=== PATIENT | male | born 1955 | race Caucasian/White ===

== ENCOUNTER 2020-06-12 19:48 | Inpatient (IN) | payer MEDICARE ==
[~2020-06-12] VITALS: Ht 170.2 cm; Wt 81.0 kg
[2020-06-13] MEDS ORDERED: DEXTROSE (50%) 50ML SYRG IV PRN (00:15)
[2020-06-13] MEDS ORDERED: LABETALOL HCL 5 MG/ML 4ML SYRINGE IV PRN (00:15)
[2020-06-13 00:30] VITALS: BP 135/70
[2020-06-13] MEDS ORDERED: EMPA1TAB3 PO (00:46)
[2020-06-13] MEDS ORDERED: ATOR40TA52 PO (00:46)
[2020-06-13] MEDS ORDERED: CIPR500T4 PO (00:46)
[2020-06-13] MEDS ORDERED: INSUINJ37 SC (00:46)
[2020-06-13] MEDS: DOXYCYCLINE 100MG/250ML 250 ML IV SCH ×2 (01:00→16:09)
[2020-06-13] MEDS: SODIUM CHLORIDE 0.9% 1,000 ML IV SCH ×2 (01:00→17:10)
[2020-06-13] MEDS: HYDROcodone-ACET 5/325MG TAB PO PRN ×5 (01:01→21:26)
[2020-06-13] MEDS ORDERED: NITROGLYCERIN 0.4 MG SL TAB SL PRN ×2 (01:15)
[2020-06-13] MEDS ORDERED: MORPHINE SULF INJ 2 MG/ML SYRINGE 1ML IV PRN ×2 (01:15)
--- NOTE | 2020-06-13 01:21 | NUR ---
transfer from [facility] dr gramajo accepting physician, pt arrived awake and alert on room air. pt oriented to this nurse, room restroom, bed control. pt left foot is 3+ pitting edema, skin is tight and warm to touch, blood appears to be coming from between great and second toe. pt reports he is ambulatory normally and this foot began to be an issue 3 days ago and is not aware of any incident in particular that couldve caused issue. pt is alert and oriented x4. pt came with 18g to rfa and single lumen right upper arm picc. this nurse spoke with dr gramajo and received orders. this nurse to carry out orders. pt using urinal. pt bed locked, low and 2x rails up. call light in reach, this nurse to round q1hr and prn. pt encouraged to call as needed.
--- NOTE | 2020-06-13 01:31 | NUR ---
wound photo of left foot taken. wound cleanser used, non adhering gauze applied between great and second toe, then wrapped with gauze roll.
[2020-06-13] MEDS: CIPROFLOXACIN 400MG/200ML 200 ML IV SCH ×2 (03:27→14:37)
[2020-06-13 05:00] VITALS: BP 113/59
[2020-06-13] MEDS: InsuLIN REG 1unit/0.01ml Soln (100units/ml) SC SCH ×4 (06:27→21:23)
[2020-06-13] MEDS: SODIUM CHLOR 0.9% PF (SALINE LOCK) 10ML VIAL/SYR IV SCH ×3 (06:30→21:19)
[2020-06-13] MEDS: ACCU-CHEK COMFORT CURVE STRIP VI SCH ×4 (06:30→21:20)
[2020-06-13 09:00] VITALS: BP 111/55
[2020-06-13] MEDS ORDERED: ASPirin 325 MG TAB PO ONE (09:45)
[2020-06-13] MEDS ORDERED: ENOXAPARIN SOD 40 MG/0.4 ML SYRINGE SC SCH (10:00)
[2020-06-13] MEDS: ENOXAPARIN SOD 80 MG/0.8ML SYRINGE SC SCH ×2 (10:07→21:20)
[2020-06-13 10:15] LABS: Basophils # (auto) 0 10 ^3/uL (0-0.2); Eosinophils # (auto) 0.2 10 ^3/uL (0-0.8); Hemoglobin 10.1 g/dL (13.5-17.5); Lymphocytes # (auto) 1.9 10 ^3/uL (0.4-5.4); Monocytes # (auto) 1.3 10 ^3/uL (0-1.3); Neutrophils # (auto) 14.2 10 ^3/uL (1.6-8.6)
[2020-06-13 10:17] LABS: Basophils % (auto) 0.2 % (0.0-2.0); Hematocrit 29.7 % (41.0-53.0); Lymphocytes % (auto) 10.6 % (10.0-50.0); Mean Corpuscular Hemoglobin 31.2 pg (28.0-32.0); Mean Corpuscular Volume 91.6 fL (80.0-100.0); Monocytes % (auto) 7.6 % (0.0-12.0); Neutrophils % (auto) 80.6 % (37.0-80.0); Platelet Count (auto) 486 10^3/uL (140-450); Red Blood Cells 3.25 10^6/uL (4.5-5.90); Red Cell Distribution Width 13.1 % (11.8-14.3); White Blood Cell 17.7 10^3/uL (4.4-10.8)
[2020-06-13 10:22] LABS: Albumin 1.9 g/dL (3.4-5.0); Calcium 8.3 mg/dL (8.5-10.1); Potassium 4.1 mmol/L (3.5-5.1)
[2020-06-13 10:29] LABS: BUN/Creatinine Ratio 22.8; Bilirubin, Total 0.3 mg/dL (0.2-1.0); Total Protein 6.3 g/dL (6.4-8.2)
[2020-06-13 13:00] VITALS: BP 123/68
--- NOTE | 2020-06-13 13:20 | NUR ---
WOUND CARE NOTE: Wound care in to see patient per wound care request regarding Left Foot wound that are noted on admission. Bedside nurse took photograph of patient's wound upon admission for reference. Patient is 65 years old male with admitting diagnosis of Non-healing Ulcer, ACS. Patient is resting in bed in Rm. 214A. Patient is awake, alert and oriented. He's self turning and repositioning. His Rasheed score is 18. Patient is in no stated pain at this time however, reports that his L foot is painful upon movement. Noted patient's LLE is erythremic and edematous. He has 3x3cm blistered ulcer to at base of L great toe between L1st and L 2nd digit. Wound is yellow blistered with dark red, minimal serosanguineous drainage, no odor noted. His L toe nails noted thick and yellow. Patient reported he has had the L foot wound for a week and he has not seen a [facility] doctor. Cleansed patient's Lt foot wound with Betadine, applied Betadine moist gauze on wound and L1st and L 2nd interdigit, padded with dry gauze, wrapped with Kerlix and secured with tape. Patient tolerated well. RECOMMENDATION: Nursing to continue with Daily/PRN dressing change to Lt foot wound per MD order, Podiatry consult, Dietary consult, elevate affected extremity on pillows, continue monitoring by wound care while patient is hospitalized. Addendum: 06/13/20 at 1554 by Marlena Lin RN Amended: Links added.
[2020-06-13] MEDS ORDERED: PANTOPRAZOLE 40 MG/10 ML VIAL INJ IV ONE (15:15)
[2020-06-13 16:50] VITALS: BP 125/72
[2020-06-13 19:23] LABS: Urine Bacteria NONE SEEN /hpf (None Seen); Urine Blood Negative /uL (Negative); Urine Specific Gravity 1.015 (1.001-1.035); Urine WBC <1 /hpf (0 - 3)
--- NOTE | 2020-06-13 20:30 | NUR ---
OPEN NOTE assumed care of pt, upon entering room pt awake and alert on room air with no s/s distress noted or expressed. pt denies any pain at this time. pt updated on plan of care. pt rapid tracie test performed and swab walked to lab. pt bed locked, low and 2x rails up. call light in reach, this nurse to round q1hr and prn. pt encouraged to call as needed.
[2020-06-13] MEDS: ATORVASTATIN 20 MG TAB PO SCH (21:20)
[2020-06-13 22:00] VITALS: BP 118/65
[2020-06-13] MEDS ORDERED: ATORVASTATIN 20 MG TAB PO SCH (22:00)
[2020-06-14] MEDS: DOXYCYCLINE 100MG/250ML 250 ML IV SCH ×2 (00:59→14:45)
[2020-06-14] MEDS: HYDROcodone-ACET 5/325MG TAB PO PRN ×4 (01:21→22:29)
[2020-06-14] MEDS: CIPROFLOXACIN 400MG/200ML 200 ML IV SCH ×2 (02:52→14:00)
[2020-06-14 05:00] VITALS: BP 127/60
[2020-06-14] MEDS: SODIUM CHLOR 0.9% PF (SALINE LOCK) 10ML VIAL/SYR IV SCH ×3 (05:58→22:20)
[2020-06-14 06:12] LABS: Eosinophils # (auto) 0.2 10 ^3/uL (0-0.8); Monocytes # (auto) 1.3 10 ^3/uL (0-1.3); Neutrophils % (auto) 80.7 % (37.0-80.0)
[2020-06-14 06:17] LABS: Basophils # (auto) 0.1 10 ^3/uL (0-0.2); Basophils % (auto) 0.4 % (0.0-2.0); Hematocrit 29.8 % (41.0-53.0); Lymphocytes # (auto) 1.8 10 ^3/uL (0.4-5.4); Lymphocytes % (auto) 10.4 % (10.0-50.0); Mean Corpuscular Hgb Conc. 33.5 g/dL (32.0-36.0); Mean Corpuscular Volume 92.6 fL (80.0-100.0); Monocytes % (auto) 7.5 % (0.0-12.0); Neutrophils # (auto) 13.9 10 ^3/uL (1.6-8.6); Platelet Count (auto) 475 10^3/uL (140-450); Red Blood Cells 3.22 10^6/uL (4.5-5.90); Red Cell Distribution Width 13.2 % (11.8-14.3); White Blood Cell 17.3 10^3/uL (4.4-10.8)
[2020-06-14] MEDS: ACCU-CHEK COMFORT CURVE STRIP VI SCH ×4 (06:28→22:19)
[2020-06-14] MEDS: InsuLIN REG 1unit/0.01ml Soln (100units/ml) SC SCH ×4 (06:29→22:28)
[2020-06-14 06:32] LABS: BUN/Creatinine Ratio 21.8; Calcium 8.3 mg/dL (8.5-10.1); Magnesium 2.4 mg/dL (1.6-2.6)
--- NOTE | 2020-06-14 07:30 | NUR ---
Opening Shift Note Assuming care of patient at this time. Patient is awake and alert. Patient denies pain. Patient shows no signs or symptoms of distress or shortness of breath. Bed is locked and lowered with side rail up x2. Instructed patient on the plan of care for today and to call for assistance as needed. Call light within reach. Will continue to round hourly and as needed.
[2020-06-14 09:00] VITALS: BP 120/61
[2020-06-14] MEDS: SODIUM CHLORIDE 0.9% 1,000 ML IV SCH (09:35)
[2020-06-14] MEDS: ASPirin 81 mg TAB PO SCH (10:00)
[2020-06-14] MEDS: ENOXAPARIN SOD 80 MG/0.8ML SYRINGE SC SCH ×2 (10:00→22:21)
[2020-06-14] MEDS: PANTOPRAZOLE 40 MG/10 ML VIAL INJ IV SCH (10:45)
--- NOTE | 2020-06-14 12:36 | NUR ---
Nutrition Assessment/Consult Notes Please refer to link for full assessment notes. Est Energy needs: 6220-6197 kcals (20-23 kcal/kgBW) Est Protein needs: 81-89 gms/day (1.0-1.1 gm/kgBW) Will continue to monitor and reassess prn. Addendum: 06/14/20 at [address] Amended: Links added.
[2020-06-14 13:00] VITALS: BP 112/58
[2020-06-14] MEDS ORDERED: GADOTERIDOL 279.3mg/mL 20ml Vial IV ONE (14:46)
--- NOTE | 2020-06-14 16:38 | NUR ---
Podiatry Consult Dr. Hsu notified of all imaging studies. Procedure to be done tomorrow at 0900.
--- NOTE | 2020-06-14 16:45 | NUR ---
Outside Cutter/Surgery Notified research greenhouse supervisor, Felisa, that Dr. Hsu will do procedure on patient tomorrow at 0900. Felisa aware of procedure requested.
[2020-06-14 17:00] VITALS: BP 151/81
[2020-06-14 18:15] VITALS: BP 148/80
[2020-06-14] MEDS: MORPHINE SULFATE 4 MG/ML SYR/VIAL IV PRN (18:19)
--- NOTE | 2020-06-14 19:25 | NUR ---
Closing Shift Note Patient resting in bed. Consents signed. Patient aware of surgery. Patient has been medicated for pain. No distress noted. Report given. Will endorse care to the reversing mill roller RN.
--- NOTE | 2020-06-14 19:40 | NUR ---
Opening Shift Note Assuming care of patient, patient is awake and alert. Patient shows no signs or symptoms of distress or shortness of breath. Bed is locked and lowered with side rail up x2. Instructed patient on the plan of care for today and to call for assistance as needed. Call light within reach.
[2020-06-14 21:00] VITALS: BP 139/94
[2020-06-14] MEDS: ATORVASTATIN 20 MG TAB PO SCH (22:19)
--- NOTE | 2020-06-15 00:29 | NUR ---
EKG: EKG ordered and performed per protocol for procedure for baseline EKG. Patient tolerated well and placed results in chart.
[2020-06-15] MEDS: DOXYCYCLINE 100MG/250ML 250 ML IV SCH ×2 (01:02→13:31)
[2020-06-15] MEDS: MORPHINE SULFATE 4 MG/ML SYR/VIAL IV PRN ×3 (02:28→18:55)
[2020-06-15] MEDS: SODIUM CHLORIDE 0.9% 1,000 ML IV SCH ×2 (02:33→18:55)
--- NOTE | 2020-06-15 04:45 | NUR ---
CHG BATH DONE: PERFORMED CHG BATH ON PATIENT. GOWN AND BEDDING CHANGED, PATIENT TOLERATED WELL.
[2020-06-15 05:00] VITALS: BP 113/57
[2020-06-15 05:57] LABS: Basophils # (auto) 0.1 10 ^3/uL (0-0.2); Basophils % (auto) 0.4 % (0.0-2.0); Eosinophils # (auto) 0.2 10 ^3/uL (0-0.8); Hematocrit 29.6 % (41.0-53.0); Hemoglobin 9.9 g/dL (13.5-17.5); Lymphocytes # (auto) 1.7 10 ^3/uL (0.4-5.4); Lymphocytes % (auto) 9.7 % (10.0-50.0); Mean Corpuscular Hemoglobin 30.9 pg (28.0-32.0); Mean Corpuscular Hgb Conc. 33.6 g/dL (32.0-36.0); Mean Corpuscular Volume 92.1 fL (80.0-100.0); Monocytes # (auto) 1.2 10 ^3/uL (0-1.3); Monocytes % (auto) 6.7 % (0.0-12.0); Neutrophils # (auto) 14.1 10 ^3/uL (1.6-8.6); Neutrophils % (auto) 82.2 % (37.0-80.0); Platelet Count (auto) 467 10^3/uL (140-450); Red Blood Cells 3.21 10^6/uL (4.5-5.90); Red Cell Distribution Width 13.1 % (11.8-14.3); White Blood Cell 17.2 10^3/uL (4.4-10.8)
[2020-06-15] MEDS: SODIUM CHLOR 0.9% PF (SALINE LOCK) 10ML VIAL/SYR IV SCH ×3 (06:00→21:44)
[2020-06-15 06:11] LABS: BUN/Creatinine Ratio 19.1; Calcium 8.4 mg/dL (8.5-10.1); Magnesium 2.2 mg/dL (1.6-2.6); Potassium 4.2 mmol/L (3.5-5.1)
[2020-06-15 06:12] LABS: INR 1.17 (0.9-1.15); Partial Thromboplastin Time 37.4 sec (23.0-31.2)
[2020-06-15] MEDS: ACCU-CHEK COMFORT CURVE STRIP VI SCH ×4 (06:55→21:44)
[2020-06-15] MEDS: InsuLIN REG 1unit/0.01ml Soln (100units/ml) SC SCH ×4 (06:55→21:47)
--- NOTE | 2020-06-15 07:45 | NUR ---
Opening Shift Note Assumed care of patient, awake and alert. Respirations are even and non labored. No S/S of distress/SOB or pain. Bed is in the lowest and locked position with side rails up x 2 and call light within reach. Instructed on POC and to call for assist PRN, will continue to monitor for changes Q1hr and PRN.
--- NOTE | 2020-06-15 08:45 | NUR ---
Off unit Patient off unit to PACU for procedure.
[2020-06-15] MEDS ORDERED: ceFAZolin 1GM/50ML 50 ML IV ONE (08:51)
[2020-06-15 09:00] VITALS: BP 120/64
[2020-06-15] MEDS ORDERED: MIDAZOLAM HCL 1MG/1ML-2 ML VIAL ONE (09:15)
[2020-06-15] MEDS ORDERED: fentaNYL CITRATE 100 MCG/2 ML VL ONE (09:15)
[2020-06-15] MEDS ORDERED: PROPOFOL 10 MG/ML 20 ML IV ONE (09:55)
[2020-06-15] MEDS ORDERED: ONDANSETRON HCL 4 MG/2 ML VIAL ONE (09:56)
[2020-06-15] MEDS: ASPirin 81 mg TAB PO SCH (10:00)
[2020-06-15] MEDS: ENOXAPARIN SOD 80 MG/0.8ML SYRINGE SC SCH ×2 (10:00→21:43)
[2020-06-15] MEDS: PANTOPRAZOLE 40 MG/10 ML VIAL INJ IV SCH (10:00)
[2020-06-15] MEDS ORDERED: HYDROmorphone HCL 2 MG/ML VL IV PRN (10:15)
[2020-06-15] MEDS ORDERED: METOCLOPRAMIDE HCL 5MG/ml INJ 2ml VIAL IV PRN (10:15)
[2020-06-15] MEDS ORDERED: LABETALOL HCL 5 MG/ML 4ML SYRINGE IV PRN (10:15)
[2020-06-15] MEDS ORDERED: LABETALOL HCL 5 MG/ML ML 20ML VIAL IV ONE (10:17)
[2020-06-15 13:00] VITALS: BP 148/78
[2020-06-15 16:59] VITALS: BP 144/78
--- NOTE | 2020-06-15 19:16 | NUR ---
Closing Shift Note Patient resting in bed. No distress noted. Report given. Will endorse care to the night filler RN.
[2020-06-15] MEDS: ATORVASTATIN 20 MG TAB PO SCH (21:44)
[2020-06-15 22:00] VITALS: BP 144/74
--- NOTE | 2020-06-15 23:35 | NUR ---
family update family called for update on patient status. password verified, update given.
[2020-06-16] MEDS: DOXYCYCLINE 100MG/250ML 250 ML IV SCH ×2 (00:06→12:34)
[2020-06-16] MEDS: MORPHINE SULFATE 4 MG/ML SYR/VIAL IV PRN ×3 (00:07→16:35)
[2020-06-16 04:46] VITALS: BP 125/69
[2020-06-16] MEDS: ACCU-CHEK COMFORT CURVE STRIP VI SCH ×4 (06:17→21:23)
[2020-06-16] MEDS: SODIUM CHLOR 0.9% PF (SALINE LOCK) 10ML VIAL/SYR IV SCH ×3 (06:18→21:21)
[2020-06-16] MEDS: InsuLIN REG 1unit/0.01ml Soln (100units/ml) SC SCH ×4 (06:22→21:22)
--- NOTE | 2020-06-16 06:47 | NUR ---
closing note pt resting comfortably in semi with HOB at 30 with eyes closed. no s/s of pain or distress.
[2020-06-16 06:52] LABS: Eosinophils # (auto) 0.1 10 ^3/uL (0-0.8)
[2020-06-16 06:54] LABS: Basophils # (auto) 0.1 10 ^3/uL (0-0.2); Basophils % (auto) 0.3 % (0.0-2.0); Eosinophils % (auto) 0.6 % (0.0-7.0); Hematocrit 30.1 % (41.0-53.0); Lymphocytes # (auto) 2.3 10 ^3/uL (0.4-5.4); Lymphocytes % (auto) 12.5 % (10.0-50.0); Mean Corpuscular Hgb Conc. 33.3 g/dL (32.0-36.0); Monocytes # (auto) 1.3 10 ^3/uL (0-1.3); Neutrophils # (auto) 14.3 10 ^3/uL (1.6-8.6); Neutrophils % (auto) 79.6 % (37.0-80.0); Platelet Count (auto) 456 10^3/uL (140-450); Red Blood Cells 3.23 10^6/uL (4.5-5.90); Red Cell Distribution Width 13.4 % (11.8-14.3)
[2020-06-16 07:10] LABS: Calcium 8.4 mg/dL (8.5-10.1); Magnesium 2.7 mg/dL (1.6-2.6); Potassium 4.2 mmol/L (3.5-5.1)
[2020-06-16 07:13] LABS: BUN/Creatinine Ratio 17.3
--- NOTE | 2020-06-16 07:20 | NUR ---
Opening Shift Note Assumed care of patient is resting with eyes closed. Respirations are even and non-labored. No S/S of distress/SOB or pain. Bed is in the lowest locked position with side rails up x 2 and call light within reach. Will continue to monitor for changes Q1hr and PRN.
[2020-06-16 08:51] VITALS: BP 130/63
[2020-06-16] MEDS: ASPirin 81 mg TAB PO SCH (10:40)
[2020-06-16] MEDS: PANTOPRAZOLE 40 MG/10 ML VIAL INJ IV SCH (10:40)
[2020-06-16] MEDS: ENOXAPARIN SOD 80 MG/0.8ML SYRINGE SC SCH ×2 (10:40→21:21)
[2020-06-16] MEDS: SODIUM CHLORIDE 0.9% 1,000 ML IV SCH (11:41)
[2020-06-16 13:00] VITALS: BP 119/66
[2020-06-16] MEDS ORDERED: VANCOMYCIN PER PHARMACY 0 MG IV SCH (16:45)
[2020-06-16 16:49] VITALS: BP 116/65
[2020-06-16] MEDS: VANCOMYCIN 1GM/250ML 250 ML IV SCH (18:12)
--- NOTE | 2020-06-16 19:20 | NUR ---
ASSUMED CARE, PT. AWAKE, DRESSING ON LT. FOOT DRY AND INTACT, NO C/O PAIN, NOT IN DISTRESS.
[2020-06-16] MEDS: ATORVASTATIN 20 MG TAB PO SCH (21:21)
[2020-06-16 22:00] VITALS: BP 113/64
[2020-06-17] MEDS: SODIUM CHLORIDE 0.9% 1,000 ML IV SCH ×3 (04:15→08:53)
[2020-06-17] MEDS: HYDROcodone-ACET 5/325MG TAB PO PRN ×2 (04:22→22:57)
[2020-06-17 05:12] VITALS: BP 126/69
[2020-06-17] MEDS: SODIUM CHLOR 0.9% PF (SALINE LOCK) 10ML VIAL/SYR IV SCH ×3 (05:52→21:27)
[2020-06-17] MEDS: InsuLIN REG 1unit/0.01ml Soln (100units/ml) SC SCH ×4 (06:07→22:42)
[2020-06-17] MEDS: ACCU-CHEK COMFORT CURVE STRIP VI SCH ×4 (06:08→21:30)
[2020-06-17 07:10] LABS: Basophils # (auto) 0 10 ^3/uL (0-0.2); Basophils % (auto) 0.2 % (0.0-2.0); Eosinophils # (auto) 0.1 10 ^3/uL (0-0.8); Eosinophils % (auto) 0.9 % (0.0-7.0); Hematocrit 29.5 % (41.0-53.0); Hemoglobin 9.7 g/dL (13.5-17.5); Lymphocytes # (auto) 1.6 10 ^3/uL (0.4-5.4); Lymphocytes % (auto) 9.6 % (10.0-50.0); Mean Corpuscular Hemoglobin 30.5 pg (28.0-32.0); Mean Corpuscular Volume 92.5 fL (80.0-100.0); Monocytes # (auto) 1.1 10 ^3/uL (0-1.3); Monocytes % (auto) 6.7 % (0.0-12.0); Neutrophils # (auto) 13.8 10 ^3/uL (1.6-8.6); Neutrophils % (auto) 82.6 % (37.0-80.0); Platelet Count (auto) 420 10^3/uL (140-450); Red Blood Cells 3.19 10^6/uL (4.5-5.90); Red Cell Distribution Width 12.9 % (11.8-14.3); White Blood Cell 16.7 10^3/uL (4.4-10.8)
[2020-06-17 07:27] LABS: Potassium 4.2 mmol/L (3.5-5.1)
[2020-06-17 07:33] LABS: BUN/Creatinine Ratio 19.8; Calcium 8.2 mg/dL (8.5-10.1)
--- NOTE | 2020-06-17 08:50 | NUR ---
Patient resting comfortably in bed with no complaint of pain. Patient stable at this time.
[2020-06-17 09:00] VITALS: BP 133/89
[2020-06-17] MEDS: ASPirin 81 mg TAB PO SCH (09:21)
[2020-06-17] MEDS: ASCORBIC ACID 500 MG TAB PO SCH (09:21)
[2020-06-17] MEDS: PANTOPRAZOLE 40 MG/10 ML VIAL INJ IV SCH (09:21)
[2020-06-17] MEDS: ENOXAPARIN SOD 80 MG/0.8ML SYRINGE SC SCH ×2 (09:21→21:30)
[2020-06-17] MEDS: MULTIPLE VITAMINS W/ MINERALS TAB PO SCH (09:21)
--- NOTE | 2020-06-17 09:25 | NUR ---
Scheduled medications given per order. Patient denies any pain at this time. Patient stable.
--- NOTE | 2020-06-17 11:09 | NUR ---
Nutrition Followup Notes Pt wt is 82.1 kg Pt was sleeping when rounded this morning. Pt is with a CCHO 60g diet, appetite is good aeb 100% PO intake per RN doc. Est Energy needs: 5292-9799 kcals (20-23 kcal/kgBW) Est Protein needs: 81-89 gms/day (1.0-1.1 gm/kgBW) Will continue to monitor and reassess prn. LABS: BUN 19 H, GUC 160 H, CA 8.2 L, ALB 1.9 L GI:Pt had 1 BM on 06/14 per RN doc BS: 17 mod risk. Refer to wound assessment report for full details. PES: 1) Overweight r/t energy intake in excess of energy needs aeb 121% IBW and BMI of 28.0 kg/m2 2) Altered nutrition related lab values r/t current medical condition aeb hyperglycemia, severe hypoalbuminemia Comments Will continue to monitor PO status, skin status, pertinent labs and weight trends. Will f/u in 3-5 days. 1) Continue to carefully monitor pt PO intake to meet at least 75% of meals 2) Suggest a daily MVI and 500mg VitC bid 3) If albumin continues trending down with improved RFTs, consider Prostat 1 pkt BID 4) Continue current plan of care
--- NOTE | 2020-06-17 12:50 | NUR ---
Scheduled IV abx given per order. Checked blood sugar: 170 mg/dl - covered per sliding scale. Patient eating lunch at this time.
[2020-06-17] MEDS: VANCOMYCIN 1GM/250ML 250 ML IV SCH (12:53)
[2020-06-17 13:00] VITALS: BP 121/69
--- NOTE | 2020-06-17 14:05 | NUR ---
Patient resting quietly in bed with no distress noted.
[2020-06-17 17:00] VITALS: BP 141/75
--- NOTE | 2020-06-17 17:40 | NUR ---
Checked blood sugar: 163 mg/dl - will cover per sliding scale. Patient stable. Addendum: 06/17/20 at 1756 by YAQUELIN REID RN RN Covered per sliding scale.
--- NOTE | 2020-06-17 18:30 | NUR ---
Patient resting in bed with no complaint of pain or discomfort. Patient stable throughout shift.
--- NOTE | 2020-06-17 19:30 | NUR ---
Opening Shift Note Assumed care of patient, awake and alert. Dressing on the left foot dry, and intact. No S/S of distress/SOB or pain. Instructed on POC and to call for assist PRN, will continue to monitor for changes Q1hr and PRN.
[2020-06-17] MEDS: ATORVASTATIN 20 MG TAB PO SCH (21:27)
[2020-06-17 21:47] VITALS: BP 128/72
[2020-06-18] VITALS (7 sets, daily range): BP systolic 136–160; BP diastolic 72–84
[2020-06-18 05:39] LABS: Basophils # (auto) 0 10 ^3/uL (0-0.2); Basophils % (auto) 0.3 % (0.0-2.0); Eosinophils # (auto) 0.1 10 ^3/uL (0-0.8); Eosinophils % (auto) 0.9 % (0.0-7.0); Hematocrit 28.8 % (41.0-53.0); Hemoglobin 9.6 g/dL (13.5-17.5); Lymphocytes # (auto) 1.8 10 ^3/uL (0.4-5.4); Lymphocytes % (auto) 12.6 % (10.0-50.0); Mean Corpuscular Hemoglobin 30.4 pg (28.0-32.0); Mean Corpuscular Hgb Conc. 33.2 g/dL (32.0-36.0); Mean Corpuscular Volume 91.5 fL (80.0-100.0); Neutrophils # (auto) 11.4 10 ^3/uL (1.6-8.6); Neutrophils % (auto) 79.2 % (37.0-80.0); Platelet Count (auto) 444 10^3/uL (140-450); Red Blood Cells 3.14 10^6/uL (4.5-5.90); Red Cell Distribution Width 13.5 % (11.8-14.3); White Blood Cell 14.4 10^3/uL (4.4-10.8)
[2020-06-18] MEDS: VANCOMYCIN 1GM/250ML 250 ML IV SCH (05:53)
[2020-06-18] MEDS: SODIUM CHLOR 0.9% PF (SALINE LOCK) 10ML VIAL/SYR IV SCH ×3 (05:54→22:15)
[2020-06-18] MEDS: HYDROcodone-ACET 5/325MG TAB PO PRN (05:57)
[2020-06-18 06:00] LABS: Calcium 8.2 mg/dL (8.5-10.1); Potassium 3.9 mmol/L (3.5-5.1)
[2020-06-18 06:03] LABS: BUN/Creatinine Ratio 15.4
[2020-06-18] MEDS: InsuLIN REG 1unit/0.01ml Soln (100units/ml) SC SCH ×4 (06:42→22:00)
[2020-06-18] MEDS: ACCU-CHEK COMFORT CURVE STRIP VI SCH ×4 (06:42→22:14)
--- NOTE | 2020-06-18 07:55 | NUR ---
Patient resting comfortably in bed with no distress noted. Patient stable at this time.
--- NOTE | 2020-06-18 08:45 | NUR ---
Patient finished eating breakfast and is now resting quietly in bed with no complaint of pain. Patient stable.
[2020-06-18] MEDS: ASPirin 81 mg TAB PO SCH (09:49)
[2020-06-18] MEDS: MULTIPLE VITAMINS W/ MINERALS TAB PO SCH (09:49)
[2020-06-18] MEDS: PANTOPRAZOLE 40 MG/10 ML VIAL INJ IV SCH (09:49)
[2020-06-18] MEDS: ASCORBIC ACID 500 MG TAB PO SCH (09:49)
[2020-06-18] MEDS: ENOXAPARIN SOD 80 MG/0.8ML SYRINGE SC SCH ×2 (09:50→22:00)
--- NOTE | 2020-06-18 09:50 | NUR ---
Scheduled medications given per order. Patient denies any pain at this time. Patient stable.
--- NOTE | 2020-06-18 11:35 | NUR ---
Patient resting comfortably in bed with eyes closed. Patient stable.
--- NOTE | 2020-06-18 12:44 | NUR ---
Checked blood sugar: 168 mg/dl - covered per sliding scale. Patient resting comfortably in bed at this time.
[2020-06-18] MEDS: SODIUM CHLORIDE 0.9% 1,000 ML IV SCH (14:00)
--- NOTE | 2020-06-18 14:00 | NUR ---
Patient resting quietly in bed with no distress noted. Patient stable.
--- NOTE | 2020-06-18 14:37 | NUR ---
assessment Patient is a 65 year old male who is alert and oriented. Prior to admission patient lived home alone and functioned with assistance. Per patient he will return home to his prior living arrangements post discharge and his sister will be moving in with him. Patient informed me he has no safety concerns regarding returning home on discharge. Patient was admitted for leg swelling/cellulitis. Patient may benefit from home health for wound care and medication management on discharge. I informed patient he has a right to speak to a social worker palliative care regarding all care. I informed patient he has a right to participate in any and all discharge planning. Patient does not have a POA and advanced directive. I have offered patient information on POA and advanced directives. I informed the patient the advantages and benefits of having an Advanced Directive. Patient verbalized understanding and agreed to discharge plan. Addendum: 06/18/20 at 1440 by Jessica GRANADOS Amended: Links added.
--- NOTE | 2020-06-18 15:30 | NUR ---
Patient asleep. No distress noted at this time.
--- NOTE | 2020-06-18 17:19 | NUR ---
Checked blood sugar: 138 mg/dl -will cover per sliding scale. Addendum: 06/18/20 at 1729 by YAQUELIN REID RN RN Covered per sliding scale.
--- NOTE | 2020-06-18 18:05 | NUR ---
Patient asleep. Patient stable throughout shift.
--- NOTE | 2020-06-18 19:40 | NUR ---
OPENING SHIFT NOTE Assumed care of patient who is A&O x4. Currently on RA with no s/s of distress. Denies pain at this time. Single lumen PICC line in right upper arm intact and patent. No s/s of infection note; IVF infusing as ordered. PIV in right forearm is intact. Dressing to left foot present. Moderate dried sanguineous drainage noted. Patient is ambulatory without the use of assistive devices at baseline. POC discussed and patient verbalizes understanding. Bed is in low locked position with side rails up x2. Call light is within reach and patient encouraged to call for assistance when needed. Will continue to monitor for changes PRN.
[2020-06-18] MEDS: ATORVASTATIN 20 MG TAB PO SCH (21:59)
[2020-06-18] MEDS: ceFAZolin 1GM/50ML 50 ML IV SCH (21:59)
[2020-06-18] MEDS ORDERED: SULFAMETHOX W/TRIMETH(800/160MG) DS TAB PO SCH (22:00)
--- NOTE | 2020-06-18 23:30 | NUR ---
DRESSING CHANGE Patient instructed on procedure. Dressing removed using clean technique. moderate serosanguineous drainage with mild odor noted. Wound cleansed with wound cleanser and patted dry with sterile gauze. Wound packed with half inch Iodoform and covered with sterile gauze. Wrapped with Kerlix and secured with tape. Patient tolerated well.
--- NOTE | 2020-06-18 23:45 | NUR ---
PICC LINE DRESSING CHANGE Patient instructed on procedure and verbalizes understanding. Patient provided surgical mask and dressing removed. No s/s of infection noted at insertion site. Using sterile technique, area cleansed and new dressing applied. Lumen flushed with 10ml NS. Patient tolerated well.
[2020-06-19] MEDS: HYDROcodone-ACET 5/325MG TAB PO PRN ×3 (00:07→15:38)
[2020-06-19 05:00] VITALS: BP 140/64
[2020-06-19] MEDS: ceFAZolin 1GM/50ML 50 ML IV SCH ×3 (05:32→21:44)
[2020-06-19] MEDS: SODIUM CHLOR 0.9% PF (SALINE LOCK) 10ML VIAL/SYR IV SCH ×3 (05:33→21:44)
[2020-06-19] MEDS: SODIUM CHLORIDE 0.9% 1,000 ML IV SCH ×2 (05:33→22:55)
[2020-06-19] MEDS: InsuLIN REG 1unit/0.01ml Soln (100units/ml) SC SCH ×4 (06:19→21:49)
[2020-06-19] MEDS: ACCU-CHEK COMFORT CURVE STRIP VI SCH ×4 (06:19→21:44)
--- NOTE | 2020-06-19 07:25 | NUR ---
Patient asleep. No distress noted at this time.
[2020-06-19 08:20] VITALS: BP 138/68
--- NOTE | 2020-06-19 08:20 | NUR ---
Patient eating breakfast; states pain is subsiding. Stable at this time.
[2020-06-19 08:49] LABS: Basophils # (auto) 0.1 10 ^3/uL (0-0.2); Basophils % (auto) 0.5 % (0.0-2.0); Eosinophils # (auto) 0.2 10 ^3/uL (0-0.8); Hemoglobin 10.5 g/dL (13.5-17.5); Lymphocytes # (auto) 1.9 10 ^3/uL (0.4-5.4); Monocytes # (auto) 0.9 10 ^3/uL (0-1.3)
[2020-06-19 08:52] LABS: Eosinophils % (auto) 1.3 % (0.0-7.0); Hematocrit 31.4 % (41.0-53.0); Lymphocytes % (auto) 14.4 % (10.0-50.0); Mean Corpuscular Hemoglobin 30.9 pg (28.0-32.0); Mean Corpuscular Hgb Conc. 33.5 g/dL (32.0-36.0); Mean Corpuscular Volume 92.4 fL (80.0-100.0); Monocytes % (auto) 6.6 % (0.0-12.0); Neutrophils # (auto) 10.3 10 ^3/uL (1.6-8.6); Neutrophils % (auto) 77.2 % (37.0-80.0); Nucleated Red Blood Cells % 0.2 %; Platelet Count (auto) 476 10^3/uL (140-450); Red Cell Distribution Width 13.5 % (11.8-14.3); White Blood Cell 13.4 10^3/uL (4.4-10.8)
[2020-06-19 09:00] VITALS: BP 138/68
[2020-06-19 09:10] LABS: Albumin 2.2 g/dL (3.4-5.0); Calcium 8.5 mg/dL (8.5-10.1); Potassium 3.9 mmol/L (3.5-5.1)
[2020-06-19 09:15] LABS: BUN/Creatinine Ratio 11.8; Bilirubin, Total 0.3 mg/dL (0.2-1.0); Total Protein 7.2 g/dL (6.4-8.2)
[2020-06-19] MEDS: PANTOPRAZOLE 40 MG/10 ML VIAL INJ IV SCH (09:33)
[2020-06-19] MEDS: ENOXAPARIN SOD 80 MG/0.8ML SYRINGE SC SCH ×2 (09:34→21:38)
[2020-06-19] MEDS: ASPirin 81 mg TAB PO SCH (09:34)
[2020-06-19] MEDS: ASCORBIC ACID 500 MG TAB PO SCH (09:34)
[2020-06-19] MEDS: MULTIPLE VITAMINS W/ MINERALS TAB PO SCH (09:34)
--- NOTE | 2020-06-19 09:35 | NUR ---
Scheduled medications given per order. Patient resting comfortably in bed with no complaint of pain at this time. Patient stable.
--- NOTE | 2020-06-19 10:30 | NUR ---
Patient ambulated to bathroom and back to bed. Patient stable.
--- NOTE | 2020-06-19 11:44 | NUR ---
Checked blood sugar: 180 mg/dl - will cover per sliding scale. Addendum: 06/19/20 at 1159 by YAQUELIN REID RN RN Covered per sliding scale. Patient stable at this time.
[2020-06-19 13:00] VITALS: BP 114/55
--- NOTE | 2020-06-19 13:37 | NUR ---
Scheduled IV abx given and PICC line flushed per order. Patient resting in bed at this time. Stable.
--- NOTE | 2020-06-19 13:52 | NUR ---
D/C Planning Per social service consult for home health wound care. Information and choice letter was given to patient . Patient refused home health service stating his Umm and two daughters Maranda and Analia will help him take care of his wound.
--- NOTE | 2020-06-19 14:15 | NUR ---
Patient resting quietly in bed with eyes closed; no distress noted.
--- NOTE | 2020-06-19 15:39 | NUR ---
Patient medicated for 02/20 pain in right foot. Addendum: 06/19/20 at 1547 by YAQUELIN REID RN RN [id number]: Patient ambulated to bathroom and back to bed with ROBB Salguero at bedside.
[2020-06-19 17:00] VITALS: BP 123/69
--- NOTE | 2020-06-19 17:51 | NUR ---
Checked blood sugar: 208 mg/dl - will cover per sliding scale. Addendum: 06/19/20 at 1806 by YAQUELIN REID RN RN Covered per sliding scale.
--- NOTE | 2020-06-19 18:05 | NUR ---
Patient watching tv; stable throughout shift.
--- NOTE | 2020-06-19 18:35 | NUR ---
Patient ambulated to bathroom and back to bed.
--- NOTE | 2020-06-19 19:45 | NUR ---
OPENING SHIFT NOTE Assumed care of patient who is A&O x4. Currently on RA with no s/s of distress. Denies pain at this time. Single lumen PICC line in right upper arm in place. No s/s of infection noted. IVF currently infusing as ordered. Dressing to left foot is intact. Minimal serosanguineous drainage noted. Bed is in low locked position with side rails up x2. Call light is within reach and patient encouraged to call for assistance when needed. Will continue to monitor for changes PRN.
[2020-06-19 21:31] VITALS: BP 132/76
[2020-06-19] MEDS: ATORVASTATIN 20 MG TAB PO SCH (21:38)
[2020-06-20] MEDS: ceFAZolin 1GM/50ML 50 ML IV SCH ×3 (05:17→22:00)
[2020-06-20] MEDS: SODIUM CHLOR 0.9% PF (SALINE LOCK) 10ML VIAL/SYR IV SCH ×3 (05:18→22:03)
[2020-06-20] MEDS: HYDROcodone-ACET 5/325MG TAB PO PRN (05:18)
[2020-06-20 05:25] VITALS: BP 127/66
[2020-06-20] MEDS: ACCU-CHEK COMFORT CURVE STRIP VI SCH ×4 (06:23→21:49)
[2020-06-20] MEDS: InsuLIN REG 1unit/0.01ml Soln (100units/ml) SC SCH ×4 (06:26→21:49)
[2020-06-20 06:40] LABS: Basophils # (auto) 0.1 10 ^3/uL (0-0.2); Eosinophils # (auto) 0.1 10 ^3/uL (0-0.8); Monocytes # (auto) 0.8 10 ^3/uL (0-1.3); Red Cell Distribution Width 13.4 % (11.8-14.3); White Blood Cell 11.9 10^3/uL (4.4-10.8)
[2020-06-20 06:42] LABS: Basophils % (auto) 0.5 % (0.0-2.0); Eosinophils % (auto) 1.1 % (0.0-7.0); Hematocrit 30.6 % (41.0-53.0); Hemoglobin 10.1 g/dL (13.5-17.5); Lymphocytes # (auto) 1.5 10 ^3/uL (0.4-5.4); Lymphocytes % (auto) 12.8 % (10.0-50.0); Mean Corpuscular Hemoglobin 30.2 pg (28.0-32.0); Mean Corpuscular Hgb Conc. 33.1 g/dL (32.0-36.0); Mean Corpuscular Volume 91.3 fL (80.0-100.0); Monocytes % (auto) 6.8 % (0.0-12.0); Neutrophils # (auto) 9.4 10 ^3/uL (1.6-8.6); Neutrophils % (auto) 78.8 % (37.0-80.0); Platelet Count (auto) 494 10^3/uL (140-450); Red Blood Cells 3.36 10^6/uL (4.5-5.90)
[2020-06-20 07:03] LABS: Potassium 4.1 mmol/L (3.5-5.1)
[2020-06-20 07:17] LABS: Albumin 2.2 g/dL (3.4-5.0); BUN/Creatinine Ratio 11.8; Bilirubin, Total 0.2 mg/dL (0.2-1.0); Calcium 8.6 mg/dL (8.5-10.1); Total Protein 7.1 g/dL (6.4-8.2)
[2020-06-20 07:50] VITALS: BP 137/77
--- NOTE | 2020-06-20 07:50 | NUR ---
Patient resting quietly in bed with no complaint of pain or discomfort. Patient stable at this time.
[2020-06-20 09:00] VITALS: BP 137/77
[2020-06-20] MEDS: PANTOPRAZOLE 40 MG/10 ML VIAL INJ IV SCH (09:41)
[2020-06-20] MEDS: ASCORBIC ACID 500 MG TAB PO SCH (09:41)
[2020-06-20] MEDS: MULTIPLE VITAMINS W/ MINERALS TAB PO SCH (09:41)
[2020-06-20] MEDS: ASPirin 81 mg TAB PO SCH (09:41)
[2020-06-20] MEDS: ENOXAPARIN SOD 80 MG/0.8ML SYRINGE SC SCH ×2 (09:42→22:00)
--- NOTE | 2020-06-20 09:45 | NUR ---
Patient eating breakfast. Scheduled medications given per order. Patient stable at this time.
--- NOTE | 2020-06-20 11:39 | NUR ---
Checked blood sugar: 148 mg/dl - will cover per sliding scale. Addendum: 06/20/20 at 1158 by YAQUELIN REID RN RN Covered per sliding scale.
[2020-06-20 12:56] VITALS: BP 145/79
--- NOTE | 2020-06-20 14:31 | NUR ---
Nutrition Followup Notes Pt wt is 81 kg Pt was sleeping when rounded this morning. Pt is s/p debridement of wound per MD note. Pt is with a CCHO 60g diet, appetite appears to good aeb 75% po intake x 1 06/17 and 100% PO intakex 1 06/19 per RN doc. Est Energy needs: 5337-1047 kcals (20-23 kcal/kgBW) Est Protein needs: 81-89 gms/day (1.0-1.1 gm/kgBW) Will continue to monitor and reassess prn. LABS: GLUC 176H, Alb 2.2L GI:Pt had 3 BMs on 06/20 per RN doc BS: 21 low risk. Refer to wound assessment report for full details. PES: 1) Overweight r/t energy intake in excess of energy needs aeb 121% IBW and BMI of 28.0 kg/m2 2) Altered nutrition related lab values r/t current medical condition aeb hyperglycemia, severe hypoalbuminemia Comments Will continue to monitor PO status, skin status, pertinent labs and weight trends. Will f/u in 3-5 days. 1) Continue to carefully monitor pt PO intake to meet at least 75% of meals 2) Suggest a daily MVI and 500mg VitC bid 3) If albumin continues trending down with improved RFTs, consider Prostat 1 pkt BID 4) Continue current plan of care
[2020-06-20] MEDS: SODIUM CHLORIDE 0.9% 1,000 ML IV SCH (15:28)
--- NOTE | 2020-06-20 15:28 | NUR ---
Scheduled IV abx given per order. Patient resting comfortably and quietly in bed with no distress noted.
[2020-06-20 17:00] VITALS: BP 131/76
--- NOTE | 2020-06-20 17:05 | NUR ---
Patient stable with Dr. Argueta at bedside to explain procedure (left heart cath) scheduled for tomorrow morning.
--- NOTE | 2020-06-20 17:40 | NUR ---
Checked blood sugar: 180 mg/dl - will cover per sliding scale. Patient stable. Addendum: 06/20/20 at 1748 by YAQUELIN REID RN RN Covered per sliding scale.
--- NOTE | 2020-06-20 18:30 | NUR ---
Wound on left foot between great and second toe was cleanse with NS, packed with 1/2 inch iodoform, and covered with kerlix. Patient tolerated well. Patient stable throughout shift.
--- NOTE | 2020-06-20 19:30 | NUR ---
Opening Shift Note Assumed care of patient. Patient sleeping in bed. No S/S of distress/SOB or pain. Safety measures maintained by keeping the bed locked in lowest position, 2 side rails up, personal items and call light within reach. Instructed on POC and to call for assist PRN, will continue to monitor for changes Q1hr and PRN.
[2020-06-20 21:46] VITALS: BP 120/70
[2020-06-20] MEDS: ATORVASTATIN 20 MG TAB PO SCH (22:00)
[2020-06-21] MEDS: HYDROcodone-ACET 5/325MG TAB PO PRN ×2 (00:09→12:17)
[2020-06-21 05:00] VITALS: BP 131/77
[2020-06-21 06:04] LABS: Basophils # (auto) 0.1 10 ^3/uL (0-0.2); Basophils % (auto) 0.7 % (0.0-2.0); Eosinophils # (auto) 0.1 10 ^3/uL (0-0.8); Eosinophils % (auto) 1.5 % (0.0-7.0); Hematocrit 28.7 % (41.0-53.0); Hemoglobin 9.6 g/dL (13.5-17.5); Lymphocytes # (auto) 1.6 10 ^3/uL (0.4-5.4); Lymphocytes % (auto) 17.7 % (10.0-50.0); Mean Corpuscular Hemoglobin 30.5 pg (28.0-32.0); Mean Corpuscular Hgb Conc. 33.4 g/dL (32.0-36.0); Mean Corpuscular Volume 91.3 fL (80.0-100.0); Monocytes # (auto) 0.8 10 ^3/uL (0-1.3); Neutrophils # (auto) 6.6 10 ^3/uL (1.6-8.6); Neutrophils % (auto) 71.1 % (37.0-80.0); Nucleated Red Blood Cells % 0.1 %; Platelet Count (auto) 473 10^3/uL (140-450); Red Blood Cells 3.14 10^6/uL (4.5-5.90); Red Cell Distribution Width 13.7 % (11.8-14.3); White Blood Cell 9.3 10^3/uL (4.4-10.8)
[2020-06-21] MEDS: SODIUM CHLOR 0.9% PF (SALINE LOCK) 10ML VIAL/SYR IV SCH ×2 (06:15→14:00)
[2020-06-21] MEDS: ceFAZolin 1GM/50ML 50 ML IV SCH ×2 (06:15→14:00)
[2020-06-21 06:21] LABS: INR 1.1 (0.9-1.15); Partial Thromboplastin Time 31.7 sec (23.0-31.2)
[2020-06-21] MEDS: InsuLIN REG 1unit/0.01ml Soln (100units/ml) SC SCH ×2 (06:21→12:26)
[2020-06-21] MEDS: ACCU-CHEK COMFORT CURVE STRIP VI SCH ×2 (06:21→11:30)
[2020-06-21 06:30] LABS: Potassium 3.9 mmol/L (3.5-5.1)
[2020-06-21 06:37] LABS: Albumin 2.1 g/dL (3.4-5.0); BUN/Creatinine Ratio 12.2; Bilirubin, Total 0.3 mg/dL (0.2-1.0); Calcium 8.5 mg/dL (8.5-10.1); Total Protein 6.7 g/dL (6.4-8.2)
[2020-06-21] MEDS ORDERED: LIDOCAINE 2%HCL (LOCAL ANESTH.) INJ 20ML MDV ONE (07:19)
[2020-06-21] MEDS ORDERED: IODIXANOL 320MG/ML 100ML BTL IV ONE (07:19)
--- NOTE | 2020-06-21 07:48 | NUR ---
PATIENT OFF UNIT FOR LEFT HEART CATH WITH DR. BENSON WILL RESUME A SCHEDULED MEDS UPON RETURN TO UNIT.
[2020-06-21 08:00] VITALS: BP 144/72
[2020-06-21] MEDS ORDERED: VERAPAMIL 2.5MG/ML INJ 2ML VIAL IV ONE (08:11)
[2020-06-21] MEDS ORDERED: HEPARIN SODIUM (PORCINE) 5000 UNITS/ML 1ML VIAL ONE (08:11)
[2020-06-21] MEDS ORDERED: ANGIOMAX 250 MG VIAL IV ONE (08:11)
[2020-06-21] MEDS ORDERED: fentaNYL CITRATE 100 MCG/2 ML VL ONE (08:12)
[2020-06-21] MEDS ORDERED: SODIUM CHL 0.9% 50 ML ONE (08:12)
[2020-06-21] MEDS ORDERED: MIDAZOLAM HCL 1MG/1ML-2 ML VIAL ONE (08:12)
[2020-06-21] MEDS: SODIUM CHLORIDE 0.9% 1,000 ML IV SCH (08:15)
[2020-06-21] MEDS ORDERED: TICAGRELOR 90 MG TAB ONE (08:46)
[2020-06-21] MEDS ORDERED: ASPirin 325 MG TAB ONE (08:47)
[2020-06-21 09:00] VITALS: BP 144/70
--- NOTE | 2020-06-21 09:15 | NUR ---
Received pt. in Evaluation Assistant Post-Op awake and alert, oriented to person, place and event, respirations even and unlabored, slightly restless in bed c/o urge to void, RIGHT wrist VASC band intact with no oozing or bleeding noted at visible puncture site, denies numbness or tingling to RIGHT fingers, RIGHT radial pulse is palpable and moves all extremities spontaneously, verbalizes understanding re: importance of not using RIGHT hand and states will comply.
--- NOTE | 2020-06-21 09:22 | NUR ---
Pt. states unable to hold urine and is incontinent of small amount urine on gown and sheets, assisted up to standing position to facilitate voiding in urinal. Voided 450 ml clear yellow urine in urinal , then assisted back into bed with dry linens and incontinent pad, clean gown also applied; pt. tolerated activity well, RIGHT wrist VASC band remains intact with no bleeding noted.
--- NOTE | 2020-06-21 09:45 | NUR ---
RT wrist VASC band unchanged, continues to deny numbness or tingling to RIGHT hand, palpable radial pulse present.
[2020-06-21] MEDS ORDERED: METOPROLOL TARTRATE 25 MG TAB PO SCH (10:00)
[2020-06-21] MEDS: ENOXAPARIN SOD 80 MG/0.8ML SYRINGE SC SCH (10:00)
[2020-06-21] MEDS ORDERED: ENALAPRIL MALEATE 2.5 MG TAB PO SCH (10:00)
[2020-06-21] MEDS: ASPirin 81 mg TAB PO SCH (10:00)
--- NOTE | 2020-06-21 10:03 | NUR ---
IV Angiomax complete, IV converted to NS lock. GISELE PICC line intact; site benign, RIGHT wrist VASC band unchanged.
--- NOTE | 2020-06-21 10:12 | NUR ---
SBAR report given to GENNA Jesus, pt. is stable for return to room.
--- NOTE | 2020-06-21 10:15 | NUR ---
patient is s/p left heart cath with right wrist access. Vasc band in place, no bleeding noted. deflation starts at 1015
--- NOTE | 2020-06-21 10:16 | NUR ---
RT wrist VASC band intact with no bleeding or oozing at puncture site, transferred to room via bed with assist by Maru Dorsey RN, Pt. endorsed to GENNA Jesus.
[2020-06-21] MEDS: PANTOPRAZOLE 40 MG/10 ML VIAL INJ IV SCH (10:56)
[2020-06-21] MEDS: ASCORBIC ACID 500 MG TAB PO SCH (10:58)
[2020-06-21] MEDS: MULTIPLE VITAMINS W/ MINERALS TAB PO SCH (10:58)
--- NOTE | 2020-06-21 11:20 | NUR ---
VASC BAND COMPLETELY DEFLATED. NO BLEEDING FROM SITE PATIENT IS DEMANDING TO LEAVE AMA
[2020-06-21 13:00] VITALS: BP 143/83
--- NOTE | 2020-06-21 14:35 | NUR ---
WOUND ON LEFT FOOD DRESSED PER WOUND CARE ORDER. PT. TOLERATED WELL
--- NOTE | 2020-06-21 15:20 | NUR ---
PATIENT LEFT AMA, DESPITE EDUCATION ON IMPORTANCE OF COMPLIANCE WITH HOSPITAL TREATMENT. PICC LINE DISCONTINUED AND PRESSURE DRESSING APPLIED. TELE BOX RETURNED TO ICU. MD AWARE AND NEW PRESCRIPTION GIVEN TO PATIENT.
[2020-06-22] MEDS ORDERED: TICAGRELOR 90 MG TAB PO SCH (10:00)
[2020-07-12] MEDS ORDERED: ceFAZolin 1GM VL IV ONE (09:15)
== END 2020-06-21 15:20 | disposition left against medical advice (07) | DRG 853 ==
LOC: TELE-CENTR 23:55
PROVIDERS: ADMIT Specialist; ATTEND Specialist
PROC: 0S9N0ZZ Drainage of Left Metatarsal-Phalangeal Joint, Open Approach (ICD-10-PCS; 2020-06-15)
PROC: 0QBR0ZZ Excision of Left Toe Phalanx, Open Approach (ICD-10-PCS; principal; 2020-06-15 09:00)
PROC: 027135Z Dilation of Coronary Artery, Two Arteries with Two Drug-eluting Intraluminal Devices, Percutaneous Approach (ICD-10-PCS; 2020-06-21)
PROC: 4A023N7 Measurement of Cardiac Sampling and Pressure, Left Heart, Percutaneous Approach (ICD-10-PCS; 2020-06-21)
PROC: B2111ZZ Fluoroscopy of Multiple Coronary Arteries using Low Osmolar Contrast (ICD-10-PCS; 2020-06-21)
PROC: B215YZZ Fluoroscopy of Left Heart using Other Contrast (ICD-10-PCS; 2020-06-21)
DX: A41.9 Sepsis, unspecified organism (principal); I50.31 Acute diastolic (congestive) heart failure; L03.116 Cellulitis of left lower limb; E87.1 Hypo-osmolality and hyponatremia; N39.0 Urinary tract infection, site not specified; L02.416 Cutaneous abscess of left lower limb; E44.1 Mild protein-calorie malnutrition; I25.10 Atherosclerotic heart disease of native coronary artery without angina pectoris; F15.10 Other stimulant abuse, uncomplicated; E11.40 Type 2 diabetes mellitus with diabetic neuropathy, unspecified; Z53.29 Procedure and treatment not carried out because of patient's decision for other reasons; I10 Essential (primary) hypertension; E78.5 Hyperlipidemia, unspecified; Z86.73 Personal history of transient ischemic attack (TIA), and cerebral infarction without residual deficits; Z79.4 Long term (current) use of insulin; Z83.3 Family history of diabetes mellitus; R77.8 Other specified abnormalities of plasma proteins; Z20.828 Contact with and (suspected) exposure to other viral communicable diseases
CPT/HCPCS: 36415; 71045; 73630; 73718; 73720; 80048; 80053; 81001; 82962; 83735; 83880; 84484; 85025; 85610; 85730; 86850; 86900; 86901; 87070; 87075; 87077; 87081; 87086; 87088; 87186; 87205; 87426; 92928; 93005; 93306; 93458; 93926; 93971; 99152; 99153; C1874; C1887; C9113; G0378; J0690; J1815; J2250; J2405; J2704; J3490; Q9967